=== PATIENT | female | born 1945 | race Caucasian/White ===

== ENCOUNTER 2024-05-04 07:30 | Observation (INO) ==
[~2024-05-04 07:30] MED LIST: Naloxone 0.4 mg VIAL 0.4 mg/ml 1 ml VIAL IV PRN; Ondansetron 4 mg VIAL 2 MG/ML 2 ml VIAL IV PRN; ROPIVACAINE 5 MG/ML 30 ML BTL (0.5%) ONE
[2024-05-04] MEDS ORDERED: Midazolam 2 mg/2 ml VIAL 1 mg/ml 2 ml VIAL (2 mg) ONE (07:59)
[2024-05-04] MEDS ORDERED: Phenylephrine IV 10 MG/ML 1 ml VIAL ONE (07:59)
[2024-05-04] MEDS ORDERED: Lidocaine 2% PF 5 ML VIAL ONE (07:59)
[2024-05-04] MEDS ORDERED: fentaNYL 100 mcg/2 ml 50 MCG/ML VIAL ONE ×4 (08:00→14:55)
[2024-05-04 08:23] LABS: Rapid COVID-19 Molecular Undetected (Undetected)
[2024-05-04] MEDS ORDERED: Famotidine IV 10 MG/ML 2 ml VIAL (20 mg) ONE (08:24)
[2024-05-04] MEDS ORDERED: ceFAZolin 2 GM PREMIX 2 GM/50 ML BAG ONE (08:24)
[2024-05-04] MEDS ORDERED: Tranexamic Acid 1 GM/100ML BAG 2,000 MG/200 ML BAG IV ONE (08:24)
[2024-05-04] MEDS ORDERED: Rocuronium 50 mg VIAL 10 mg/ml 5 ml VIAL (50 mg) ONE ×2 (08:31→09:55)
[2024-05-04] MEDS: Famotidine IV 10 MG/ML 2 ml VIAL (20 mg) IV ONE (08:48)
[2024-05-04] MEDS: Buffered Lidocaine 1% SYRIN 1 ml INTRADERM ONE (08:48)
[2024-05-04] MEDS: Lactated Ringers 1000 ml BAG 1,000 ML IV SCH ×2 (08:49→15:29)
[2024-05-04] MEDS ORDERED: ROPIVACAINE 5 MG/ML 30 ML BTL (0.5%) ONE (09:10)
[2024-05-04] MEDS ORDERED: Dexamethasone IV 4 MG/ML VIAL 1 ml VIAL ONE ×3 (09:11→13:47)
[2024-05-04] MEDS ORDERED: Ondansetron 4 mg VIAL 2 MG/ML 2 ml VIAL ONE ×3 (10:38→13:47)
[2024-05-04] MEDS ORDERED: Ondansetron 4 mg VIAL 2 MG/ML 2 ml VIAL IV PRN (10:45)
[2024-05-04] MEDS ORDERED: Calcium Carb (TUMS) 500 mg CHEW TAB PO PRN (10:45)
[2024-05-04] MEDS ORDERED: Lactulose 30 ml UDC PO PRN (10:45)
[2024-05-04] MEDS ORDERED: Acetaminophen IV 1 GM/100ML 1,000 MG/100 ML BAG IV ONE ×2 (11:14→14:21)
[2024-05-04] MEDS ORDERED: HYDROmorphone 0.5 MG/0.5 ML SYRINGE ONE (11:50)
[2024-05-04] MEDS: fentaNYL 100 mcg/2 ml 50 MCG/ML VIAL IV PRN (13:12)
[2024-05-04] MEDS ORDERED: Propofol 10 MG/ML 20 ML BTL ONE (14:55)
[2024-05-04] MEDS: ceFAZolin 2 GM PREMIX 2 GM/50 ML BAG IV SCH ×2 (15:29→18:25)
[2024-05-04 16:52] LABS: INR 0.96 (0.85-1.14)
[2024-05-04 17:00] LABS: Calcium 8.6 mg/dL (8.6-10.3); Creatinine, Serum 0.67 mg/dL (0.51-0.95); Magnesium 1.9 mg/dL (1.9-2.7); Potassium 4.2 mmol/L (3.5-5.0); eGFR CKD-EPI 90.5 (>60)
[2024-05-04] MEDS ORDERED: Warfarin per PHARMACY **NOTE FOLLOW UP SCH (19:00)
[2024-05-04] MEDS: Ondansetron ODT 4 mg TAB 4 MG TAB PO PRN (20:24)
[2024-05-04] MEDS: Aspirin EC 81 mg TAB.EC (enteric coated) PO SCH (20:25)
[2024-05-04] MEDS: Magnesium Hydroxide LIQ 30 ML UDC PO SCH (20:25)
[2024-05-04] MEDS: Enoxaparin 80 MG/0.8 ML SYR SUBCUT SCH (21:48)
[2024-05-04] MEDS: Metoclopramide 5 MG/ML VIAL (10 mg) IV PRN (22:19)
[2024-05-04] MEDS: Morphine 2 MG/ML SYRINGE IV PRN (22:22)
[2024-05-05 06:08] LABS: Hematocrit 35.3 % (35-45); Hemoglobin 12.2 g/dL (11.5-14.3); Mean Platelet Volume 7.7 fL (7.5-11.2); Platelet Count 284 10^3/uL (150-450)
[2024-05-05 06:27] LABS: Calcium 8.9 mg/dL (8.6-10.3); Creatinine, Serum 0.63 mg/dL (0.51-0.95); Potassium 4.4 mmol/L (3.5-5.0); eGFR CKD-EPI 91.9 (>60)
[2024-05-05] MEDS ORDERED: Enoxaparin 100 MG/ML SYR SUBCUT SCH (09:00)
[2024-05-05] MEDS: Magnesium Hydroxide LIQ 30 ML UDC PO PRN (09:22)
[2024-05-05] MEDS: Vitamin THERAPEUTIC TAB PO SCH (09:22)
[2024-05-05 09:51] VITALS: BP 120/57
[2024-05-05] MEDS ORDERED: Warfarin DAILY REMINDER **NOTE FOLLOW UP SCH (17:00)
== END 2024-05-05 12:37 | disposition home or self-care (01) ==
LOC: OR 07:30 → SSU 07:30 → SUATTDRO 10:45
PROVIDERS: ADMIT Orthopaedic Surgery Adult Reconstructive Orthopaedic Surgery; ATTEND Orthopaedic Surgery Adult Reconstructive Orthopaedic Surgery